=== PATIENT | female | born 1990 | race Hispanic/Latino ===

== ENCOUNTER 2023-09-16 19:24 | Emergency (ER) | payer SELFPAY ==
[2023-09-16 20:26] LABS: #Basophils 0.1 thou/uL (0.0-0.2); #Eosinphils 0.1 thou/uL (0.0-0.7); #Monocytes 1.4 thou/uL (0.11-0.59); #Neutrophils 9.6 thou/uL (1.40-6.50); %Basophils 0.6 % (0.0-1.0); %Eosinophils 0.5 % (0.0-10.0); %Lymphocytes 21.3 % (21.0-51.0); %Neutrophils 66.8 % (42.0-75.0); Hematocrit 38.7 % (36.0-47.0); Hemoglobin 13.7 g/dL (12.0-16.0); Mean Corpuscular HGB CONC 35.4 g/dL (32.0-36.0); Mean Corpuscular Hemoglobin 31.5 pg (27.0-31.0); Mean Platelet Volume 9.5 fL (7.4-10.4); Platelet Count 270 10x3/uL (130-400); RBC Distribution Width 12.5 % (11.5-14.5); Red Blood Cell (RBC) Count 4.35 mill/uL (4.20-5.40); White Blood Cell (WBC) Count 14.4 10x3/uL (4.8-10.8)
[2023-09-16 20:49] LABS: ALT (SGPT) 26 U/L (8-55); AST (SGOT) 22 U/L (5-34); Albumin 4.3 g/dL (3.5-5.0); Alkaline Phosphatase 65 U/L (40-110); Anion Gap 14 mmol/L (10-20); BUN (Urea Nitrogen) 10 mg/dL (7.0-18.7); Bilirubin, Total 0.3 mg/dL (0.2-1.2); Calc. Creatinine Clearance 0 mL/min (70-130); Calcium 9.2 mg/dL (7.8-10.44); Carbon Dioxide 21 mmol/L (22-29); Chloride 104 mmol/L (98-107); Estimated GFR 107; Globulin 2.7 g/dL (2.4-3.5); Glucose 100 mg/dL (70-105); Magnesium 1.7 mg/dL (1.6-2.6); Potassium 3.2 mmol/L (3.5-5.1); Sodium 136 mmol/L (136-145)
[2023-09-16 20:58] LABS: Troponin I Less than 0.010 ng/mL (< 0.028)
[2023-09-16] MEDS ORDERED: Potassium Chloride 20 MEQ TAB ONE (21:14)
== END 2023-09-16 21:40 | disposition home or self-care (01) ==
LOC: ERS 19:24
DX: F43.0 Acute stress reaction (principal); E87.6 Hypokalemia
CPT/HCPCS: 36415; 71045; 80053; 83735; 84484; 85025; 93005